=== PATIENT | female | born 1980 | race Caucasian/White ===

== ENCOUNTER 2021-01-11 09:06 | Inpatient (IN) | payer BC ==
[~2021-01-11] VITALS: Ht 160 cm; Wt 89.1 kg
[2021-01-11 09:50] VITALS: BP 111/69
[2021-01-11] MEDS: LACTATED RINGERS 1,000 ML IV SCH ×2 (10:25→11:11)
[2021-01-11] MEDS ORDERED: TERBUTALINE 1 MG/ML, 1ML IVPush PRN (10:30)
[2021-01-11] MEDS ORDERED: FENTANYL PF 100 MCG/2ML IVPush PRN (10:30)
[2021-01-11] MEDS ORDERED: FENTANYL PF 100 MCG/2ML IV PRN (10:30)
[2021-01-11] MEDS ORDERED: OXYTOCIN 30U/ 0.9% NaCL 500ML 500 ML IV ONE (10:30)
[2021-01-11] MEDS ORDERED: D5%-LACTATED RINGERS 1,000 ML IV SCH (10:30)
[2021-01-11] MEDS ORDERED: OXYTOCIN 30U/ 0.9% NaCL 500ML 500 ML IV PRN (10:30)
[2021-01-11] MEDS ORDERED: TERBUTALINE 1 MG/ML, 1ML SQ PRN (10:30)
[2021-01-11 10:45] LABS: BASOPHILS % (AUTO) 0 % (0-1); EOSINOPHILS % (AUTO) 0 % (1-7); LYMPHOCYTES % (AUTO) 7 % (22-44); MEAN CORPUSCULAR HEMOGLOBIN 27.9 pg (27.0-34.8); MEAN CORPUSCULAR HGB CONC 33.4 g/dL (32.4-35.8); MEAN PLATELET VOLUME 7.1 fL (7.4-10.4); MONOCYTES % (AUTO) 6 % (2-9); NEUTROPHILS % (AUTO) 87 % (42-75); PLATELET COUNT 259 x10^3/uL (130-400); RED BLOOD COUNT 4.73 x10^6/uL (3.82-5.3); RED CELL DISTRIBUTION WIDTH 13.6 % (9.6-15.2)
[2021-01-11] MEDS ORDERED: NEWBORN KIT ONE (10:45)
[2021-01-11] MEDS ORDERED: BUPIVACAINE 0.25% ONE (10:58)
[2021-01-11] MEDS ORDERED: FENTANYL/BUPIV./NS/PF 250 ML EPIDCONT ONE (10:58)
[2021-01-11] MEDS ORDERED: LACTATED RINGERS 1,000 ML IVBOLUS PRN (11:30)
[2021-01-11] MEDS ORDERED: DIPHENHYDRAMINE 50 MG/ML, 1ML IVPush PRN (11:30)
[2021-01-11] MEDS ORDERED: ONDANSETRON 2MG/ML, 2ML IVPush PRN (11:30)
[2021-01-11] MEDS ORDERED: EPHEDRINE 50 MG/ML, 1ML IVPush PRN (11:30)
[2021-01-11] MEDS ORDERED: FENTANYL/BUPIV./NS/PF 250 ML EPIDCONT SCH (11:30)
[2021-01-11] MEDS ORDERED: NALOXONE 0.4 MG/ML, 1ML IVPush PRN (11:30)
[2021-01-11] MEDS ORDERED: LACTATED RINGERS 1,000 ML IV SCH (11:30)
[2021-01-11] MEDS ORDERED: MISOPROSTOL 200 MCG TABLET ONE (12:13)
[2021-01-11] MEDS ORDERED: LIDOCAINE 1%, 20ML ONE (12:13)
[2021-01-11] MEDS ORDERED: PREN1TAB10 PO (13:43)
[2021-01-11] MEDS ORDERED: ACETAMINOPHEN 500 MG TABLET ONE (18:37)
[2021-01-11] MEDS ORDERED: AMPICILLIN 2 GM in SODIUM CHLORIDE 0.9% 100 ML IV SCH (19:00)
[2021-01-11] MEDS ORDERED: ACETAMINOPHEN 500 MG TABLET PO ONE (19:00)
[2021-01-12] MEDS ORDERED: BISACODYL 10 MG SUPP PR PRN
[2021-01-12] MEDS ORDERED: RHOGAM FROM BLOOD BANK 1 NOTE EA IM/IV ONE
[2021-01-12] MEDS ORDERED: MAGNESIUM HYDROXIDE 8%, 30ML UDC PO PRN
[2021-01-12] MEDS ORDERED: DIPH,PERTUSS(ACELL),TET VAC/PF NC IM-VACC PRN
[2021-01-12] MEDS ORDERED: SIMETHICONE 80 MG CHEW TAB PO PRN
[2021-01-12] MEDS ORDERED: METHYLERGONOVINE 0.2 MG/ML IM PRN
[2021-01-12] MEDS ORDERED: GLYCERIN ADULT SUPP PR PRN
[2021-01-12] MEDS ORDERED: ONDANSETRON 2MG/ML, 2ML IV PRN
[2021-01-12] MEDS ORDERED: CARBOPROST TROMETHAMINE 250 MCG/ML, 1ML IM PRN
[2021-01-12] MEDS ORDERED: METOCLOPRAMIDE 5 MG/ML, 2ML IV PRN
[2021-01-12] MEDS ORDERED: MEASLES,MUMPS&RUBELLA VACC/PF 0.5 ML SQ-VACC PRN
[2021-01-12] MEDS ORDERED: ACETAMINOPHEN 325 MG TABLET PO PRN ×2
[2021-01-12] MEDS ORDERED: MISOPROSTOL 200 MCG TABLET PR PRN
[2021-01-12] MEDS ORDERED: OXYcodone/APAP 5/325MG TABLET PO PRN
[2021-01-12] MEDS ORDERED: CALCIUM CARBONATE 500 MG TAB.CHEW PO PRN
[2021-01-12] MEDS: IBUPROFEN 600 MG TABLET PO PRN ×2 (00:36→15:14)
[2021-01-12] MEDS: OXYTOCIN 30U/ 0.9% NaCL 500ML 500 ML IV SCH ×3 (00:37→20:00)
[2021-01-12 02:00] VITALS: BP 110/70
[2021-01-12] MEDS: OXYcodone/APAP 5/325MG TABLET PO PRN ×3 (04:29→20:39)
[2021-01-12 04:30] VITALS: BP 100/63
[2021-01-12 07:00] VITALS: BP 104/57
[2021-01-12 07:28] LABS: MEAN CORPUSCULAR HEMOGLOBIN 28.3 pg (27.0-34.8); MEAN CORPUSCULAR HGB CONC 33.7 g/dL (32.4-35.8); MEAN PLATELET VOLUME 7.1 fL (7.4-10.4); PLATELET COUNT 204 x10^3/uL (130-400); RED CELL DISTRIBUTION WIDTH 13.8 % (9.6-15.2)
[2021-01-12 07:57] LABS: <PLATELET ESTIMATE> ADEQUATE; <PLT MORPHOLOGY> NORMAL PLT MORPH; BAND#(MANUAL) 1.62 x10^3/uL; BANDS%(MANUAL) 8 % (0-7); EOS% (MANUAL) 1 % (1-7); LYMPH#(MANUAL) 1.22 x10^3/uL (1-3.4); LYMPHS% (MANUAL) 6 % (22-44); MONOS#(MANUAL) 1.42 x10^3/uL (0.3-2.7); MONOS% (MANUAL) 7 % (2-9); POLYCHROMASIA 1+; SEG#(MANUAL) 15.83 x10^3/uL (1.8-6.8); SEGS% (MANUAL) 78 % (42-75)
[2021-01-12] MEDS: DOCUSATE 100 MG CAPSULE PO PRN ×2 (09:08→20:37)
[2021-01-12] MEDS: PRENATAL VIT/IRON/FA 1 EACH TABLET PO SCH (09:08)
[2021-01-12 13:41] VITALS: BP 108/72
[2021-01-12 18:13] VITALS: BP 95/62
[2021-01-12 20:10] VITALS: BP 99/64
[2021-01-13] MEDS: OXYTOCIN 30U/ 0.9% NaCL 500ML 500 ML IV SCH (06:00)
[2021-01-13] MEDS: IBUPROFEN 600 MG TABLET PO PRN (06:40)
[2021-01-13] MEDS: OXYcodone/APAP 5/325MG TABLET PO PRN (06:41)
[2021-01-13 07:35] VITALS: BP 108/68
[2021-01-13] MEDS: PRENATAL VIT/IRON/FA 1 EACH TABLET PO SCH (10:34)
[2021-01-13] MEDS: DOCUSATE 100 MG CAPSULE PO PRN (10:34)
[2021-01-13] MEDS ORDERED: IBUP-1222 PO (11:15)
[2021-01-13] MEDS ORDERED: DOCU-131 PO (11:15)
== END 2021-01-13 12:00 | disposition home or self-care (01) | DRG 768 ==
LOC: LDOP 09:06 → LDIP 10:06 → 2NW 01-12 01:45
PROVIDERS: ADMIT Student in an Organized Health Care Education/Training Program; ATTEND Student in an Organized Health Care Education/Training Program
PROC: 0DQR0ZZ Repair Anal Sphincter, Open Approach (ICD-10-PCS; 2021-01-11)
PROC: 10E0XZZ Delivery of Products of Conception, External Approach (ICD-10-PCS; 2021-01-11)
PROC: 10H07YZ Insertion of Other Device into Products of Conception, Via Natural or Artificial Opening (ICD-10-PCS; 2021-01-11)
PROC: 3E0R3BZ Introduction of Anesthetic Agent into Spinal Canal, Percutaneous Approach (ICD-10-PCS; 2021-01-11)
PROC: 00HU33Z Insertion of Infusion Device into Spinal Canal, Percutaneous Approach (ICD-10-PCS; 2021-01-11)
PROC: 3E0234Z Introduction of Serum, Toxoid and Vaccine into Muscle, Percutaneous Approach (ICD-10-PCS; principal; 2021-01-12)
PROC: 3E0134Z Introduction of Serum, Toxoid and Vaccine into Subcutaneous Tissue, Percutaneous Approach (ICD-10-PCS; 2021-01-12)
DX: O36.8130 Decreased fetal movements, third trimester, not applicable or unspecified (principal); Z37.0 Single live birth; Z20.822 Contact with and (suspected) exposure to COVID-19; O70.20 Third degree perineal laceration during delivery, unspecified; O76 Abnormality in fetal heart rate and rhythm complicating labor and delivery; O77.0 Labor and delivery complicated by meconium in amniotic fluid; Z23 Encounter for immunization; Z3A.38 38 weeks gestation of pregnancy
CPT/HCPCS: 36415; 85025; 85461; 86592; 86850; 86870; 86900; 86922; 86923; 87635; G0378; J0290; J2790; J2590; J3010; J7120